=== PATIENT | female | born 1985 | race Caucasian/White ===

== ENCOUNTER → 2018-04-25 09:25 | Outpatient (CLI) | payer OTHER, SELFPAY ==
--- NOTE | 2018-04-25 09:27 | NM_ITS ---
NM hepatobiliary w pharm HISTORY: ITS.REASON: RUQ PAIN ORDERING PHYSICIAN: Temi Fontenot PATIENT AGE: 32 years COMPARISON: None DOSE: 8.57 mci TC choletec Fatty Meal: Ensure FINDINGS: Homogeneous activity is present within the hepatic parenchyma. What was felt to represent the gallbladder was not visualized until 45 minutes. At that point, there was a moderate amount of activity present within the small bowel. Only a small amount of activity is noted in the gallbladder. Ejection fraction was performed following ingestion of fatty meal and was 25%. Patient reported pain with fatty meal. Small bowel activity was present at 20 minutes. IMPRESSION: 1. Delayed visualization of gallbladder which may be seen with chronic inflammatory changes of the cystic duct. 2. Low gallbladder ejection fraction with pain reported with fatty meal. These findings may be seen with gallbladder dyskinesia. Please correlate with clinical parameters
== END ==
PROVIDERS: Family Provider Family Medicine; PCP Nurse Practitioner Family; Visit Provider Nurse Practitioner Family
DX: R10.11 Right upper quadrant pain (principal)
CPT/HCPCS: 78227; A9537

== ENCOUNTER → 2019-03-30 12:13 | Outpatient (CLI) | payer OTHER, SELFPAY ==
[2019-03-30 13:02] LABS: Alanine Aminotransferase 38 U/L (12-78); Albumin Level 3.2 gm/dL (3.4-5.0); Alkaline Phosphatase 75 U/L (46-116); Amylase 29 U/L (25-115); Aspartate Amino Transferase 17 U/L (15-37); Bilirubin,Direct 0.1 mg/dL (0.0-0.2); Bilirubin,Indirect 0.2 mg/dL (0.0-0.9); Bilirubin,Total 0.3 mg/dL (0.2-1.0); Total Protein,Serum 6.3 gm/dL (6.4-8.2)
[2019-04-02 02:33] LABS: ALT (SGPT) P5P 30 IU/L (0-40); Alpha 2-Macroglobulins, Qn 241 mg/dL (110-276); Apolipoprotein A-1 103 mg/dL (116-209); Bilirubin, Total 0.2 mg/dL (0.0-1.2); Fibrosis Score 0.12 (0.00-0.21); GGT 32 IU/L (0-60); Haptoglobin 172 mg/dL (34-200); Necroinflammat Activity Grade A0-No activity (.); Necroinflammat Activity Score 0.11 (0.00-0.17)
== END ==
LOC: LAB 12:14
PROVIDERS: PCP Family Medicine; Visit Provider Internal Medicine Gastroenterology
DX: R10.11 Right upper quadrant pain (principal); K76.0 Fatty (change of) liver, not elsewhere classified; K74.69 Other cirrhosis of liver
CPT/HCPCS: 36415; 80076; 81596; 82150

== ENCOUNTER 2019-04-14 10:22 | Inpatient (IN) ==
[2019-04-14 11:16] LABS: Basophils % 0.1 % (0.1-2.0); Hematocrit 45.6 % (37.0-47.0); Hemoglobin 13.6 g/dL (12.2-16.2); Lymphocytes # 1.6 K/mm3 (0.7-4.5); Lymphocytes % 9.7 % (10-50); Mean Corpuscular HGB Conc 29.8 g/dL (31.8-35.4); Mean Corpuscular Volume 72.2 fl (81-99); Mean Platelet Volume 8.6 fl (7.4-10.4); Monocytes # 0.6 K/mm3 (0.1-1.0); Monocytes % 3.6 % (1.7-9.3); Neutrophils # 13.9 K/mm3 (1.8-7.8); Neutrophils % 86.5 % (37.0-80.0); Platelet Count 343 K/mm3 (142-424); Red Blood Count 6.32 M/mm3 (4.20-5.40); Red Cell Distribution Width 17.9 % (11.5-17.5); White Blood Count 16.1 K/mm3 (4.8-10.8)
[2019-04-14 13:16] LABS: Albumin Level 3.8 gm/dL (3.4-5.0); Bilirubin,Direct 0.2 mg/dL (0.0-0.2); Bilirubin,Indirect 0.6 mg/dL (0.0-0.9); Bilirubin,Total 0.8 mg/dL (0.2-1.0); Total Protein,Serum 7.2 gm/dL (6.4-8.2)
[2019-04-14 13:27] LABS: Lymphocytes % 9 % (10-50); Monocytes % 3 % (2-9); Neutrophils % 87 % (42-76); Total Cells Counted 100
--- NOTE | 2019-04-14 15:54 | History & Physical Report ---
*Admission Date: 04/14/19 *Chief complaint: Abdominal pain *History of present illness: 33-year-old female presented to the office today with epigastric abdominal pain nausea and vomiting that began in the middle and night. Patient underwent ERCP yesterday with biliary sphincterotomy. At discharge from the hospital she was feeling well but around midnight symptoms appeared and progressed. She was seen in the office earlier today with epigastric tenderness concerning for acute pancreatitis. Labs supported diagnosis of acute pancreatitis with elevated amylase and lipase and patient is being admitted for IV fluids, pain control and antiemetics. She has a history of cirrhosis of the liver but no prior history of pancreatitis [facility] History I have reviewed the patient's past medical history: Yes Medical History: Reports:: Diabetes Mellitus Type 2, Hypertension Denies:: Cancer, Diabetes Mellitus Type 1, Internal Pacemaker, Lung Disease, MRSA, Seizures *Have you ever received a pneumonia vaccine?: No *Have you received a flu vaccine this season?: No Other Medical History: Reports: Blood Transfusion Reaction Laterality Cases: Bilateral: Tonsillectomy Other Surgeries: Yes: Cholecystectomy. No: Pacemaker Amputation: No Fractures: No - *Social History Smoking Status: Never smoker Alcohol Intake: never Alcohol Intake Frequency:: holidays/special occasions only *Occupational Status:: employed Housing: house Household Members: family *Travel in the last 8 weeks: None Family Hx:: Unable to obtain Review of Systems - Review of Systems Review of systems:: pertinent systems reviewed and negative unless documented below - Constitutional Denies body ache(s), Denies chills, Denies fever(s) - *Cardiovascular Denies chest pain - *Respiratory Denies change in phlegm color, Denies chest congestion - *Gastrointestinal Reports abdominal pain, Reports bloating Meds Home Medications Medication Instructions Recorded Confirmed Type Levothyroxine Sodium 50 mcg PO DAILY 04/08/18 04/13/19 History [Levothyroxine 50mcg (0.05mg) Tab] Metoprolol Tartrate [Lopressor 25 mg PO DAILY 04/08/18 04/13/19 History 25mg tablet] Omeprazole [Omeprazole 20mg 20 mg PO DAILY 04/08/18 04/13/19 History Capsule] Ondansetron [Zofran 4mg ODT] 4 mg PO TIDP PRN #10 tab.rapdis 04/08/18 04/13/19 Rx Carvedilol [Carvedilol 6.25mg Tab] 6.25 mg PO BID 04/07/19 04/13/19 History Empagliflozin [Jardiance] 25 mg PO DAILY 04/07/19 04/13/19 History Lisinopril [Lisinopril 10mg Tab] 10 mg PO DAILY 04/07/19 04/13/19 History Pioglitazone HCl 15 mg PO DAILY 04/07/19 04/13/19 History Allergies Allergy/AdvReac Type Severity Reaction Status Date / Time No Known Allergies Allergy Verified 04/13/19 13:21 Exam Vital signs and Labs for Last 24 Hours: Laboratory Results - last 24 hr 04/14/19 10:24: WBC 16.1 H, RBC 6.32 H, Hgb 13.6, Hct 45.6, MCV 72.2 L, MCH 21.5 L, MCHC 29.8 L, RDW 17.9 H, Plt Count 343, MPV 8.6, Neut % (Auto) 86.5 H, Lymph % (Auto) 9.7 L, [place] % (Auto) 3.6, Eos % (Auto) 0.0 L, Baso % (Auto) 0.1, Neut # (Auto) 13.9 H, Lymph # (Auto) 1.6, [place] # (Auto) 0.6, Eos # (Auto) 0.0, Baso # (Auto) 0.0, Total Counted 100, Neutrophils % (Manual) 87 H, Band Neutrophils % 1.0, Lymphocytes % (Manual) 9 L, Monocytes % (Manual) 3, Platelet Estimate Normal 04/14/19 10:24: Total Bilirubin 0.8, Direct Bilirubin 0.2, Indirect Bilirubin 0.6, AST 36, ALT 60, Alkaline Phosphatase 94, Total Protein 7.2, Albumin 3.8, Amylase 1912 H*, Lipase 66676 H Narrative: Patient appears ill with facial plethora. ENT exam is normal. Lungs are clear to auscultation. Heart has a regular rate and rhythm. Abdomen is soft and obese with epigastric tenderness to palpation without rebound or guarding. Bowel sounds are hypoactive. Patient moves all extremities and there is no pedal edema Assessment and Plan (1) Acute pancreatitis Current visit: Yes Status: Acute Category: Medical Code(s): K85.90 - Acute pancreatitis without necrosis or infection, unspecified (2) Cirrhosis of transplanted liver Current visit: Yes Status: Acute Category: Medical Code(s): T86.49 - Other complications of liver transplant; K74.60 - Unspecified cirrhosis of liver (3) Diabetes mellitus Current visit: Yes Status: Acute Category: Medical Code(s): E11.9 - Type 2 diabetes mellitus without complications - Assessment and plan all Dx Assessment and Plan for all problems:: Patient will be made n.p.o. IV fluids will be administered at a rate of 200 mL's an hour of normal saline. She has been ordered morphine for pain. Zofran and Phenergan have been ordered as antiemetics. Labs will be repeated in a.m.
[2019-04-15 06:39] LABS: Basophils % 0.2 % (0.1-2.0); Eosinophils % 0.2 % (0.1-12.0); Hematocrit 40.5 % (37.0-47.0); Lymphocytes # 2.3 K/mm3 (0.7-4.5); Lymphocytes % 14.3 % (10-50); Mean Corpuscular HGB Conc 30.2 g/dL (31.8-35.4); Mean Platelet Volume 7.3 fl (7.4-10.4); Monocytes # 1.1 K/mm3 (0.1-1.0); Monocytes % 6.8 % (1.7-9.3); Neutrophils # 12.8 K/mm3 (1.8-7.8); Neutrophils % 78.4 % (37.0-80.0); Platelet Count 268 K/mm3 (142-424); Red Blood Count 5.62 M/mm3 (4.20-5.40); Red Cell Distribution Width 18.5 % (11.5-17.5); White Blood Count 16.3 K/mm3 (4.8-10.8)
[2019-04-15 06:49] LABS: Albumin/Globulin Ratio 0.9 (1.1-1.8); Anion Gap 12.3 mEq/L (5-15); Calcium 8.2 mg/dL (8.5-10.1); Globulin 3.3 gm/dl (1.3-3.2); Total Protein,Serum 6.3 gm/dL (6.4-8.2)
[2019-04-15 07:22] LABS: Hemoglobin 12.1 g/dL (12.2-16.2)
--- NOTE | 2019-04-15 07:34 | Pharmacy Consult Notes ---
[facility] Pharmacy VTE Monitoring - Patient Demographics Admission date: 04/14/19 Report Date: 04/15/19 Time: 07:33 Allergies/Adverse Reactions: Patient Allergies No Known Allergies Allergy (Verified 04/13/19 13:21) Height: 1.7 m Weight: 132.506 kg Patient Problems: Current Active Problems Acute pancreatitis (Acute) Cirrhosis of transplanted liver (Acute) Diabetes mellitus (Acute) - VTE Risk Labs: VTE Related Lab Results Hgb 12.1 g/dL (12.2-16.2) L D 04/15/19 05:44 Hct 40.5 % (37.0-47.0) 04/15/19 05:44 Plt Count 268 K/mm3 (142-424) 04/15/19 05:44 BUN 9 mg/dL (7-18) 04/15/19 05:44 Creatinine 0.64 mg/dL (0.55-1.02) 04/15/19 05:44 Estimated Creat Clear 124 mL/min (50-200) 04/15/19 05:44 Was VTE Risk Assessment Performed: Yes VTE Score: 5 VTE Risk Level: Low Risk Clinical Trial Participant: No - Prophylaxis VTE Prophylaxis Ordered?: Yes Types of VTE Prophylaxis: TEDS Knee High
[2019-04-15 07:52] LABS: Lymphocytes % 11 % (10-50); Monocytes % 9 % (2-9); Neutrophils % 77 % (42-76); Total Cells Counted 100
--- NOTE | 2019-04-15 07:58 | Progress Note ---
Internal Medicine - PN: Subj *Date: 04/15/19 *Time: 07:56 Interval history: Patient admits to some improvement in abdominal pain this morning although admits it is minor. She still endorses nausea and epigastric abdominal pain. She denies bowel movement or flatus. Exam Vital signs and Labs for Last 24 Hours: Temp Pulse Resp BP Pulse Ox 99.6 F 101 H 18 161/72 H 100 04/15/19 03:55 04/15/19 03:55 04/15/19 03:55 04/15/19 03:55 04/15/19 03:55 Laboratory Results - last 24 hr 04/14/19 10:24: WBC 16.1 H, RBC 6.32 H, Hgb 13.6, Hct 45.6, MCV 72.2 L, MCH 21.5 L, MCHC 29.8 L, RDW 17.9 H, Plt Count 343, MPV 8.6, Neut % (Auto) 86.5 H, Lymph % (Auto) 9.7 L, [place] % (Auto) 3.6, Eos % (Auto) 0.0 L, Baso % (Auto) 0.1, Neut # (Auto) 13.9 H, Lymph # (Auto) 1.6, [place] # (Auto) 0.6, Eos # (Auto) 0.0, Baso # (Auto) 0.0, Total Counted 100, Neutrophils % (Manual) 87 H, Band Neutrophils % 1.0, Lymphocytes % (Manual) 9 L, Monocytes % (Manual) 3, Platelet Estimate Normal 04/14/19 10:24: Total Bilirubin 0.8, Direct Bilirubin 0.2, Indirect Bilirubin 0.6, AST 36, ALT 60, Alkaline Phosphatase 94, Total Protein 7.2, Albumin 3.8, Amylase 1912 H*, Lipase 57251 H 04/14/19 16:35: POC Glucose 110 04/14/19 20:18: POC Glucose 110 04/15/19 05:44: Sodium 143, Potassium 3.3 L, Chloride 108 H, Carbon Dioxide 26, Anion Gap 12.3, BUN 9, Creatinine 0.64, Estimated Creat Clear 124, Estimated GFR 108, Est GFR ( Amer) 131, Glucose 99, Calcium 8.2 L, Total Bilirubin 1.0, AST 14 L D, ALT 33 D, Alkaline Phosphatase 73, Total Protein 6.3 L, Albumin 3.0 L D, Globulin 3.3 H, Albumin/Globulin Ratio 0.9 L 04/15/19 05:44: WBC 16.3 H, RBC 5.62 H, Hgb 12.1 L D, Hct 40.5, MCV 72.0 L, MCH 21.8 L, MCHC 30.2 L, RDW 18.5 H, Plt Count 268, MPV 7.3 L, Neut % (Auto) 78.4, Lymph % (Auto) 14.3, [place] % (Auto) 6.8, Eos % (Auto) 0.2, Baso % (Auto) 0.2, Neut # (Auto) 12.8 H, Lymph # (Auto) 2.3, [place] # (Auto) 1.1 H, Eos # (Auto) 0.0, Baso # (Auto) 0.0, Total Counted 100, Neutrophils % (Manual) 77 H, Band Neutrophils % 1.0, Lymphocytes % (Manual) 11, Atypical Lymphs % 2.0, Monocytes % (Manual) 9, Platelet Estimate Normal, RBC Morphology Not Reportable 04/15/19 06:18: POC Glucose 105 I & O for Last 24 hours: Intake & Output 04/12/19 04/13/19 04/14/19 04/15/19 11:59 11:59 11:59 11:59 Intake Total 2569 / 2569 Output Total 200 / 200 Balance 2369 / 2369 Weight 292 lb 2 oz Narrative: Patient looks more comfortable. Lungs are clear. Heart has a regular rate and rhythm. Abdomen is soft with epigastric tenderness. Bowel sounds are hypoactive. Assessment and Plan (1) Acute pancreatitis Current visit: Yes Status: Acute Category: Medical Code(s): K85.90 - Acute pancreatitis without necrosis or infection, unspecified (2) Cirrhosis of transplanted liver Current visit: Yes Status: Acute Category: Medical Code(s): T86.49 - Other complications of liver transplant; K74.60 - Unspecified cirrhosis of liver (3) Diabetes mellitus Current visit: Yes Status: Acute Category: Medical Code(s): E11.9 - Type 2 diabetes mellitus without complications - Assessment and plan all Dx Assessment and Plan for all problems:: Continue IV fluids and n.p.o. status. May advance diet to ice chips this evening. Continue morphine for pain. Encourage patient to ambulate
[2019-04-16 06:12] LABS: Basophils % 0.3 % (0.1-2.0); Eosinophils # 0.2 K/mm3 (0.0-0.4); Eosinophils % 0.9 % (0.1-12.0); Hematocrit 37.3 % (37.0-47.0); Lymphocytes # 2.4 K/mm3 (0.7-4.5); Lymphocytes % 14.1 % (10-50); Mean Corpuscular HGB Conc 29.5 g/dL (31.8-35.4); Mean Corpuscular Volume 74.4 fl (81-99); Mean Platelet Volume 8.7 fl (7.4-10.4); Monocytes # 1.2 K/mm3 (0.1-1.0); Monocytes % 6.9 % (1.7-9.3); Neutrophils # 13.5 K/mm3 (1.8-7.8); Neutrophils % 77.8 % (37.0-80.0); Platelet Count 249 K/mm3 (142-424); Red Blood Count 5.02 M/mm3 (4.20-5.40); Red Cell Distribution Width 18.2 % (11.5-17.5); White Blood Count 17.3 K/mm3 (4.8-10.8)
[2019-04-16 06:43] LABS: Albumin Level 2.6 gm/dL (3.4-5.0); Albumin/Globulin Ratio 0.7 (1.1-1.8); Anion Gap 16.7 mEq/L (5-15); Bilirubin,Total 1.9 mg/dL (0.2-1.0); Calcium 8.3 mg/dL (8.5-10.1); Globulin 3.6 gm/dl (1.3-3.2); Total Protein,Serum 6.2 gm/dL (6.4-8.2)
[2019-04-16 07:07] LABS: Hypochromasia 1+; Lymphocytes % 13 % (10-50); Monocytes % 6 % (2-9); Neutrophils % 76 % (42-76); Total Cells Counted 100
--- NOTE | 2019-04-16 07:37 | Progress Note ---
Internal Medicine - PN: Subj *Date: 04/16/19 *Time: 07:35 Interval history: Patient states she is feeling slightly better this morning. She is tolerated sips and chips. She had a fever to 101.9 yesterday evening. Blood cultures were drawn and patient was started on IV Invanz. She is still has not had a bowel movement but does admit to flatus. Exam Vital signs and Labs for Last 24 Hours: Temp Pulse Resp BP Pulse Ox 99.9 F H 97 H 30 H 162/94 H 94 L 04/16/19 04:00 04/16/19 04:00 04/16/19 04:00 04/16/19 04:00 04/16/19 04:00 Laboratory Results - last 24 hr 04/15/19 05:44: Total Counted 100, Neutrophils % (Manual) 77 H, Band Neutrophils % 1.0, Lymphocytes % (Manual) 11, Atypical Lymphs % 2.0, Monocytes % (Manual) 9, Platelet Estimate Normal, RBC Morphology Not Reportable 04/15/19 11:37: POC Glucose 93 04/15/19 16:15: POC Glucose 83 04/15/19 20:11: POC Glucose 73 04/16/19 05:48: WBC 17.3 H, RBC 5.02, Hgb 11.0 L, Hct 37.3, MCV 74.4 L, MCH 21.9 L, MCHC 29.5 L, RDW 18.2 H, Plt Count 249, MPV 8.7, Neut % (Auto) 77.8, Lymph % (Auto) 14.1, [place] % (Auto) 6.9, Eos % (Auto) 0.9, Baso % (Auto) 0.3, Neut # (Auto) 13.5 H, Lymph # (Auto) 2.4, [place] # (Auto) 1.2 H, Eos # (Auto) 0.2, Baso # (Auto) 0.0, Total Counted 100, Neutrophils % (Manual) 76, Band Neutrophils % 5.0, Lymphocytes % (Manual) 13, Monocytes % (Manual) 6, Platelet Estimate Normal, Hypochromasia 1+, Microcytosis 1+ 04/16/19 05:48: Sodium 141, Potassium 3.7, Chloride 107, Carbon Dioxide 21, Anion Gap 16.7 H, BUN 7, Creatinine 0.56, Estimated Creat Clear 136, Estimated GFR 126, Est GFR ( Amer) 153, Glucose 77, Calcium 8.3 L, Total Bilirubin 1.9 H, AST 13 L, ALT 22 D, Alkaline Phosphatase 69, Total Protein 6.2 L, Albumin 2.6 L D, Globulin 3.6 H, Albumin/Globulin Ratio 0.7 L 04/16/19 06:05: POC Glucose 78 I & O for Last 24 hours: Intake & Output 04/13/19 04/14/19 04/15/19 04/16/19 11:59 11:59 11:59 11:59 Intake Total 2769 / 2769 1930 / 1930 Output Total 200 / 200 300 / 300 Balance 2569 / 2569 1630 / 1630 Weight 292 lb 2 oz 296 lb 4 oz Narrative: Patient is in no distress. Lungs are clear. Heart has a regular rate and rhythm. Abdomen is soft with epigastric and left upper quadrant tenderness to palpation with increased swelling in the left upper quadrant. Bowel sounds are present Assessment and Plan (1) Acute pancreatitis Current visit: Yes Status: Acute Category: Medical Code(s): K85.90 - Acute pancreatitis without necrosis or infection, unspecified (2) Cirrhosis of transplanted liver Current visit: No Status: Acute Category: Medical Code(s): T86.49 - Other complications of liver transplant; K74.60 - Unspecified cirrhosis of liver (3) Diabetes mellitus Current visit: Yes Status: Acute Category: Medical Code(s): E11.9 - Type 2 diabetes mellitus without complications - Assessment and plan all Dx Assessment and Plan for all problems:: 1. Clinically patient would seem to be improving. CT scan abdomen and pelvis with IV and oral contrast will be performed today. Continue IV Invanz and await blood cultures
[2019-04-17 06:38] LABS: Basophils % 0.2 % (0.1-2.0); Eosinophils # 0.2 K/mm3 (0.0-0.4); Eosinophils % 1.5 % (0.1-12.0); Hematocrit 35.2 % (37.0-47.0); Hemoglobin 10.7 g/dL (12.2-16.2); Lymphocytes # 2.1 K/mm3 (0.7-4.5); Mean Corpuscular HGB Conc 30.5 g/dL (31.8-35.4); Mean Corpuscular Volume 74.1 fl (81-99); Mean Platelet Volume 8.6 fl (7.4-10.4); Monocytes # 1.3 K/mm3 (0.1-1.0); Monocytes % 7.9 % (1.7-9.3); Neutrophils # 12.4 K/mm3 (1.8-7.8); Neutrophils % 77.4 % (37.0-80.0); Platelet Count 257 K/mm3 (142-424); Red Blood Count 4.75 M/mm3 (4.20-5.40); Red Cell Distribution Width 17.9 % (11.5-17.5); White Blood Count 16.1 K/mm3 (4.8-10.8)
--- NOTE | 2019-04-17 07:20 | Progress Note ---
Internal Medicine - PN: Subj *Date: 04/17/19 *Time: 07:19 Interval history: Patient has no new complaints this morning. With clear liquids she had some diarrhea but denies nausea or increase in abdominal pain Exam Vital signs and Labs for Last 24 Hours: Temp Pulse Resp BP Pulse Ox 99.8 F H 84 28 H 135/51 L 94 L 04/17/19 04:00 04/17/19 04:00 04/17/19 04:00 04/17/19 04:00 04/17/19 04:00 Laboratory Results - last 24 hr 04/16/19 11:16: POC Glucose 100 04/16/19 16:03: POC Glucose 105 04/16/19 22:32: POC Glucose 105 04/17/19 05:49: WBC 16.1 H, RBC 4.75, Hgb 10.7 L, Hct 35.2 L, MCV 74.1 L, MCH 22.6 L, MCHC 30.5 L, RDW 17.9 H, Plt Count 257, MPV 8.6, Neut % (Auto) 77.4, Lymph % (Auto) 13.0, [place] % (Auto) 7.9, Eos % (Auto) 1.5, Baso % (Auto) 0.2, Neut # (Auto) 12.4 H, Lymph # (Auto) 2.1, [place] # (Auto) 1.3 H, Eos # (Auto) 0.2, Baso # (Auto) 0.0 04/17/19 06:07: POC Glucose 134 H I & O for Last 24 hours: Intake & Output 04/14/19 04/15/19 04/16/19 04/17/19 11:59 11:59 11:59 11:59 Intake Total 2769 / 2769 1930 / 1930 3815 / 3815 Output Total 200 / 200 300 / 300 Balance 2569 / 2569 1630 / 1630 3815 / 3815 Weight 292 lb 2 oz 296 lb 4 oz 298 lb 1 oz Narrative: Patient is awake and alert. Abdomen is soft with no significant tenderness. There is some fullness in the left upper quadrant consistent with peripancreatic edema seen on CT scan Assessment and Plan (1) Acute pancreatitis Current visit: Yes Status: Acute Category: Medical Code(s): K85.90 - Acute pancreatitis without necrosis or infection, unspecified (2) Cirrhosis of transplanted liver Current visit: No Status: Acute Category: Medical Code(s): T86.49 - Other complications of liver transplant; K74.60 - Unspecified cirrhosis of liver (3) Diabetes mellitus Current visit: Yes Status: Acute Category: Medical Code(s): E11.9 - Type 2 diabetes mellitus without complications - Assessment and plan all Dx Assessment and Plan for all problems:: Patient is improving. Advance to full liquid diet and if she tolerates that will be candidate for discharge
[2019-04-17 07:23] LABS: Albumin Level 2.3 gm/dL (3.4-5.0); Albumin/Globulin Ratio 0.6 (1.1-1.8); Anion Gap 11.5 mEq/L (5-15); Bilirubin,Total 1.4 mg/dL (0.2-1.0); Calcium 8.2 mg/dL (8.5-10.1); Globulin 3.6 gm/dl (1.3-3.2); Total Protein,Serum 5.9 gm/dL (6.4-8.2)
[2019-04-17 09:01] LABS: Eosinophils % 1 % (0-3); Lymphocytes % 17 % (10-50); Monocytes % 2 % (2-9); Neutrophils % 79 % (42-76); Total Cells Counted 100
[2019-04-17 09:02] LABS: Hypochromasia 2+
--- NOTE | 2019-04-18 07:53 | Discharge Summary ---
General - General Admission date:: 04/14/19 Discharge date: 04/18/19 HPI HPI: 33-year-old female presented to the office today with epigastric abdominal pain nausea and vomiting that began in the middle and night. Patient underwent ERCP yesterday with biliary sphincterotomy. At discharge from the hospital she was feeling well but around midnight symptoms appeared and progressed. She was seen in the office earlier today with epigastric tenderness concerning for acute pancreatitis. Labs supported diagnosis of acute pancreatitis with elevated amylase and lipase and patient is being admitted for IV fluids, pain control and antiemetics. She has a history of cirrhosis of the liver but no prior history of pancreatitis Hospital Course Hospital Course: Made n.p.o. and started on normal saline at 200 mL's per hour with morphine ordered for pain. Patient slowly progressed with decrease in pain and nausea and vomiting. By the evening of April 15 patient was allowed ice chips. She tolerated ice chips and diet was advanced in a stepwise fashion until she was tolerating a full liquid diet. As her admission progressed her use of intravenous morphine for pain decreased. Once patient's pain had decreased she was encouraged to ambulate more. Patient has diabetes and diabetic medications were withheld during the early part of admission. Patient bordered on hypoglycemic at times and after 48 hours fluids were changed to D5 half-normal saline with 20 mEq of potassium. This corrected patient's hypokalemia as well as her borderline hypoglycemia. Patient had elevated white blood cell count on admission which was considered due to her pancreatitis. However the day following admission patient developed a fever of 101.9. Blood cultures were drawn and patient was started on Invanz. White count remained elevated despite broad-spectrum antibiotic coverage. Patient would have intermittent fevers that would respond to Tylenol. On April 17 1 of her blood cultures was beginning to show a gram-positive bacilli but her other blood cultures were negative. The gram-positive bacilli was felt to be a contaminant. On April 18 patient was discharged home. She will follow-up in my office on April 20 at 11 AM. She will be given a limited supply of pain medication. She will continue full liquid diet and will slowly advance to a low-fat diet Objective Vital signs: Temp Pulse Resp BP Pulse Ox 97.5 F L 68 20 125/63 95 04/18/19 04:00 04/18/19 04:00 04/18/19 04:00 04/18/19 04:00 04/18/19 04:00 no acute distress - *Routine Respiratory Exam Present: CTA bilaterally - *Routine Cardiovascular Exam Present: RRR, Normal S1, Normal S2 - *Routine Abdominal Exam Present: soft, tenderness (Minimal epigastric), distended Results Labs on day of discharge: Labs from last 24 hours 04/18/19 04/17/19 04/17/19 06:29 20:32 16:25 Total Counted Neutrophils % (Manual) Lymphocytes % (Manual) Monocytes % (Manual) Eosinophils % (Manual) Basophils % (Manual) Platelet Estimate Hypochromasia POC Glucose 117 H 112 H 122 H 04/17/19 04/17/19 11:05 05:49 Total Counted 100 Neutrophils % (Manual) 79 H Lymphocytes % (Manual) 17 Monocytes % (Manual) 2 Eosinophils % (Manual) 1 Basophils % (Manual) 1.0 Platelet Estimate Normal Hypochromasia 2+ POC Glucose 143 H Preliminary micro results at discharge 04/15/19 16:25 Blood Culture - Preliminary Blood 04/15/19 16:25 Blood Culture - Preliminary Blood NO GROWTH AFTER 48 HOURS DS: Diagnosis - Discharge Diagnosis (1) Acute pancreatitis Status: Acute (2) Diabetes mellitus Status: Acute (3) Cirrhosis Status: Acute Discharge Plan - Patient Discharge Instructions ACTIVITY: Continue current activity DIET: continue same diet Patient Instructions: Acute Pancreatitis, DI for Pancreatitis, DI for Cirrhosis, DI for Diabetes Type 2, DI for Hypoglycemia - Follow up Plan Follow up with: Mike Painter MD [Staff Physician] - 04/20/19 11:00 am Disposition: Home, Self-Senior Care Medications: Home Medications Medication Instructions Recorded Confirmed Type Levothyroxine Sodium 50 mcg PO DAILY 04/08/18 04/14/19 History [Levothyroxine 50mcg (0.05mg) Tab] Omeprazole [Omeprazole 20mg 20 mg PO DAILY 04/08/18 04/14/19 History Capsule] Carvedilol [Carvedilol 6.25mg Tab] 6.25 mg PO BID 04/07/19 04/14/19 History Empagliflozin [Jardiance] 25 mg PO DAILY 04/07/19 04/14/19 History Lisinopril [Lisinopril 10mg Tab] 10 mg PO DAILY 04/07/19 04/14/19 History Pioglitazone HCl 15 mg PO DAILY 04/07/19 04/14/19 History Ondansetron [Zofran 4mg ODT] 4 mg PO Q8HP PRN 04/14/19 04/15/19 History Hydrocodone/Acetaminophen [[place] 1 each PO Q6HP PRN #10 tab 04/18/19 Rx 5-325 Tablet] Prescriptions/Medication Reconciliation: New Hydrocodone/Acetaminophen [[place] 5-325 Tablet] 1 each PO Q6HP PRN #10 tab PRN Reason: Moderate To Severe Pain Continued Omeprazole [Omeprazole 20mg Capsule] 20 mg PO DAILY Carvedilol [Carvedilol 6.25mg Tab] 6.25 mg PO BID Pioglitazone HCl 15 mg PO DAILY Empagliflozin [Jardiance] 25 mg PO DAILY Levothyroxine Sodium [Levothyroxine 50mcg (0.05mg) Tab] 50 mcg PO DAILY Lisinopril [Lisinopril 10mg Tab] 10 mg PO DAILY Ondansetron [Zofran 4mg ODT] 4 mg PO Q8HP PRN PRN Reason: Nausea And Vomiting - Problem Reconciliation Problems Reviewed?: Yes
--- NOTE | 2019-04-18 08:55 | Progress Note ---
Internal Medicine - PN: Subj *Date: 04/18/19 *Time: 08:55 Exam Vital signs and Labs for Last 24 Hours: Temp Pulse Resp BP Pulse Ox 98.0 F 72 18 94/46 L 96 04/18/19 08:00 04/18/19 08:00 04/18/19 08:00 04/18/19 08:00 04/18/19 08:00 Laboratory Results - last 24 hr 04/17/19 05:49: Total Counted 100, Neutrophils % (Manual) 79 H, Lymphocytes % (Manual) 17, Monocytes % (Manual) 2, Eosinophils % (Manual) 1, Basophils % (Manual) 1.0, Platelet Estimate Normal, Hypochromasia 2+ 04/17/19 11:05: POC Glucose 143 H 04/17/19 16:25: POC Glucose 122 H 04/17/19 20:32: POC Glucose 112 H 04/18/19 06:29: POC Glucose 117 H I & O for Last 24 hours: Intake & Output 04/15/19 04/16/19 04/17/19 04/18/19 23:59 23:59 23:59 23:59 Intake Total 4459 / 4459 2690 / 2810 4811 / 4811 1003 / 1003 Output Total 200 / 200 300 / 300 Balance 4259 / 4259 2390 / 2510 4811 / 4811 1003 / 1003 Weight 132.506 kg 134.377 kg 135.199 kg 136.56 kg Microbiology Reports for the Last 24 Hours: Microbiology 04/15/19 16:25 Blood Blood Culture - Preliminary 04/15/19 16:25 Blood Blood Culture - Preliminary NO GROWTH AFTER 48 HOURS Assessment and Plan (1) Acute pancreatitis Current visit: Yes Status: Acute Category: Medical Code(s): K85.90 - Acute pancreatitis without necrosis or infection, unspecified (2) Diabetes mellitus Current visit: Yes Status: Acute Category: Medical Code(s): E11.9 - Type 2 diabetes mellitus without complications (3) Cirrhosis Current visit: Yes Status: Acute Category: Medical Code(s): K74.60 - Unspecified cirrhosis of liver The patient's infection will respond to the chosen ABx?: Yes Is the patient receiving the right drug, dose, and route?: Yes Could a more targeted ABx be ordered?: No (HOME ON NO ABX)
== END 2019-04-18 09:11 | disposition home or self-care (01) | DRG 440 ==
LOC: LAB 10:22 → 2ND 10:22 → OBSVTOIN 15:49
PROVIDERS: ADMIT Family Medicine; ATTEND Family Medicine
CPT/HCPCS: 36415; 74170; 80053; 80076; 82150; 82962; 83690; 85007; 85025; 87040; 87075; J1335; Q9967

== ENCOUNTER → 2019-05-04 13:05 | Outpatient (CLI) | payer OTHER, SELFPAY | PROVIDERS: PCP Family Medicine; Visit Provider Family Medicine | DX: R00.1 Bradycardia, unspecified (principal) | CPT/HCPCS: 93270 ==

== ENCOUNTER → 2019-09-07 09:43 | Outpatient (POV) | payer OTHER, SELFPAY ==
[2019-09-07 13:05] LABS: Basophils # 0.1 K/mm3 (0-0.2); Basophils % 0.5 % (0.1-2.0); Eosinophils # 0.3 K/mm3 (0.0-0.4); Eosinophils % 3.2 % (0.1-12.0); Hematocrit 41.9 % (37.0-47.0); Hemoglobin 12.8 g/dL (12.2-16.2); Lymphocytes # 2.7 K/mm3 (0.7-4.5); Lymphocytes % 27.4 % (10-50); Mean Corpuscular HGB Conc 30.6 g/dL (31.8-35.4); Mean Corpuscular Hemoglobin 23.9 pg (27.0-31.2); Mean Corpuscular Volume 78.2 fl (81-99); Mean Platelet Volume 8.9 fl (7.4-10.4); Monocytes # 0.5 K/mm3 (0.1-1.0); Neutrophils # 6.2 K/mm3 (1.8-7.8); Neutrophils % 63.9 % (37.0-80.0); Platelet Count 254 K/mm3 (142-424); Red Blood Count 5.36 M/mm3 (4.20-5.40); White Blood Count 9.7 K/mm3 (4.8-10.8)
[2019-09-07 15:35] LABS: Alanine Aminotransferase 46 U/L (12-78); Albumin Level 3.4 g/dL (3.4-5.0); Albumin/Globulin Ratio 1.1 (1.1-1.8); Alkaline Phosphatase 63 U/L (46-116); Amylase 34 U/L (25-115); Anion Gap 13.8 mEq/L (5-15); Aspartate Amino Transferase 23 U/L (15-37); Bilirubin,Total 0.3 mg/dL (0.2-1.0); Blood Urea Nitrogen 11 mg/dL (7-18); Carbon Dioxide 28 mmol/L (21.0-32.0); Chloride 109 mmol/L (98-107); Creatinine,Serum 0.59 mg/dL (0.55-1.02); Estimated Glomerular Filt Rate 119 ml/min (>60); GFR (African American) 144 ML/MIN (>60); Globulin 3.1 gm/dl (1.3-3.2); Glucose 128 mg/dL (74-106); Lipase 107 u/L (73-393); Potassium 4.8 mmoL/L (3.5-5.1); Sodium 146 mmol/L (137-145); Total Protein,Serum 6.5 g/dL (6.4-8.2)
== END ==
PROVIDERS: Visit Provider Nurse Practitioner Family
DX: R10.11 Right upper quadrant pain (principal); K58.9 Irritable bowel syndrome, unspecified; K76.0 Fatty (change of) liver, not elsewhere classified
CPT/HCPCS: 36415; 80053; 82150; 83690; 85025

== ENCOUNTER 2020-03-22 21:06 | Emergency (ER) | payer OTHER, SELFPAY ==
[2020-03-22 21:14] VITALS: BP 171/101; PULSE 70; RESP 18; TEMP 36.7; O2SAT 100; BMI 46.7
--- NOTE | 2020-03-22 21:27 | CT_ITS ---
PROCEDURE: CT ABDOMEN PELVIS W CON CLINICAL INDICATION: abdominal pain Sharp right-sided abdominal pain COMPARISON: CT CT ABDOMEN WO/W CON from 04/16/2019 TECHNIQUE: IV Contrast: 75ML OPTIRAY 350 Oral Contrast None Axial images obtained with sagittal and coronal reformats. All CT scans at the facility use one or more dose reduction, viz: automated exposure control, ma/kV adjustment per patient size (including targeted exams where dose is matched to indication, i.e. head), or iterative reconstruction technique. FINDINGS: LOWER THORAX: There are atelectatic changes in the lung bases. There is a oval area of consolidation in the left lower lobe posteriorly measuring 4.3 x 2 cm. This could be due to a rounded area atelectasis, pneumonia, or developing. Follow-up recommended. There is small left pleural effusion. ABDOMEN & PELVIS: Fatty liver with pneumobilia. Prior cholecystectomy. There is hepatomegaly. No focal liver lesion is demonstrated. The liver measures 29 cm transverse and 22 cm cephalad caudad. Spleen is enlarged at 17 cm. Pancreas, adrenal glands, and kidneys have an unremarkable appearance. No evidence of appendicitis or diverticulitis. No pelvic mass or abnormal fluid collection apparent. No intestinal obstruction or free. There is a 3.5 cm left ovarian cyst. Nabothian cysts tiny fat containing umbilical hernia. No acute bony anomaly. IMPRESSION: 1. Hepatosplenomegaly with hepatic steatosis and pneumobilia which could be related to prior biliary procedure but was not readily apparent on 04/16/2019. Correlation with clinical parameters needed. Cholangitis could also cause biliary gas. 2. Small left pleural effusion with masslike density in the left lower lobe medially which could be due to rounded atelectasis. Pneumonia or developing mass is an additional consideration and follow-up is suggested in 8-12 weeks. Small left effusion noted. Dictated by: Fermin Alcala MD 03/23/2020 06:08 Fermin Alcala MD in [place] 03/23/2020 06:08
[2020-03-22 21:37] LABS: Microscopic, Urine URINE MICROSCOPIC (MICROSCOPIC)
[2020-03-22 21:37] LABS: Basophils # 0.1 K/mm3 (0-0.2); Basophils % 0.7 % (0.1-2.0); Eosinophils # 0.3 K/mm3 (0.0-0.4); Eosinophils % 2.8 % (0.1-12.0); Hematocrit 45.9 % (37.0-47.0); Hemoglobin 14.5 g/dL (12.2-16.2); Lymphocytes # 3.4 K/mm3 (0.7-4.5); Lymphocytes % 30.4 % (10-50); Mean Corpuscular HGB Conc 31.5 g/dL (31.8-35.4); Mean Corpuscular Volume 79.3 fl (81-99); Mean Platelet Volume 9.1 fl (7.4-10.4); Monocytes # 0.5 K/mm3 (0.1-1.0); Monocytes % 4.7 % (1.7-9.3); Neutrophils # 6.8 K/mm3 (1.8-7.8); Neutrophils % 61.4 % (37.0-80.0); Platelet Count 263 K/mm3 (142-424); Red Blood Count 5.79 M/mm3 (4.20-5.40); Red Cell Distribution Width 14.8 % (11.5-17.5); White Blood Count 11.1 K/mm3 (4.8-10.8)
[2020-03-22 21:41] VITALS: BP 137/75; PULSE 75; RESP 16; O2SAT 96
[2020-03-22 21:46] LABS: Chloride 103 mmol/L (98-107); Sodium 143 mmol/L (136-145)
[2020-03-22 21:47] LABS: Potassium 4.1 mmoL/L (3.5-5.1)
[2020-03-22 21:49] LABS: Alanine Aminotransferase 62 U/L (12-78); Alkaline Phosphatase 71 U/L (38-126); Amylase 58 U/L (30-110); Anion Gap 15.1 mEq/L (5-15); Aspartate Amino Transferase 54 U/L (14-36); Bilirubin,Total 0.4 mg/dl (0.2-1.3); Blood Urea Nitrogen 12 mg/dl (7-17); Carbon Dioxide 29 mmol/L (22.0-30.0); Creatinine Clearance Estimated 108 mL/min (50-200); Estimated Glomerular Filt Rate 97 ml/min (>60); GFR (African American) 117 ML/MIN (>60); Glucose 136 mg/dl (74-100)
[2020-03-22 21:50] LABS: Albumin Level 4.3 g/dl (3.5-5.0); Albumin/Globulin Ratio 1.3 (1.1-1.8); Globulin 3.2 g/dL (1.3-3.2); Lipase 82 U/L (23-300); Total Protein,Serum 7.5 g/dl (6.3-8.2)
[2020-03-22 21:55] LABS: C-Reactive Protein 15.7 mg/L (0-4)
[2020-03-22 21:55] LABS: Appearance,Urine CLEAR (Clear); Bilirubin,Urine Negative (Negative); Blood, Urine Negative (Negative); Color,Urine YELLOW (Yellow); Glucose,Urine (UA) 3+ (Negative); Ketones,Urine Negative (Negative); Leukocyte Esterase,Urine Negative (Negative); Nitrate,Urine Negative (Negative); PH,Urine 7.5 (5.0-8.5); Protein,Urine Negative (Negative); Urobilinogen,Urine 0.2 EU/dl (0.2)
[2020-03-22 22:03] LABS: Urine Pregnancy, HCG Qual. Negative (Negative)
[2020-03-22 22:09] LABS: Erythrocyte Sedimentation Rate 6 mm/hr (0-20)
[2020-03-22 22:29] VITALS: BP 141/79; PULSE 78; RESP 18; O2SAT 97
[2020-03-22 22:35] LABS: Bacteria,Urine 2+ /lpf; Fine Granular Casts,Urine Occasional #/lpf (0)
[2020-03-22 22:58] VITALS: BP 154/87; PULSE 68; RESP 18; O2SAT 99
[2020-03-22 23:34] VITALS: BP 126/72; PULSE 63; RESP 18; O2SAT 98
--- NOTE | 2020-03-22 23:38 | HMH.EDNVD ---
ED Disposition Clinical Impression: Abdominal pain Qualifiers: Abdominal location: right lower quadrant Qualified Code(s): R10.31 - Right lower quadrant pain Disposition: Home, Self-Care Condition on Discharge: Good Instructions: DI for Acute Abdomen Additional Instructions: fluids and call pcp and gi for follow up Referrals: Mike Painter MD [Primary Care Provider] - - Critical Care Critical Care Time: No Attestation: On 03/22/20, the high probability of a clinically significant, sudden or life threatening deterioration of the following system(s) required my full and direct attention, intervention and personal management. The time I documented below is in addition to time spent performing reported procedures but includes the following listed in this critical care notation. Medical Decision Making - Medical Records Medical records reviewed: Yes: I reviewed the patient's medical records. - Junior Inquiry Pt receiving controlled substance: No Vital Signs: 03/22/20 21:14 03/22/20 21:41 03/22/20 22:29 Temperature 98.1 F Temperature Source Oral Pulse Rate [Left] 70 75 78 Respiratory Rate 18 16 18 Blood Pressure [Right Arm] 171/101 H 137/75 141/79 H Blood Pressure Mean [Right Arm] 124 95 99 Blood Pressure Source [Right Arm] Automatic Cuff Blood Pressure Position [Right Arm] Sitting 02 Sat by Pulse Oximetry 100 96 97 Oxygen Delivery Method Room Air Room Air Room Air 03/22/20 22:58 03/22/20 23:34 Temperature Temperature Source Pulse Rate [Left] 68 63 Respiratory Rate 18 18 Blood Pressure [Right Arm] 154/87 H 126/72 Blood Pressure Mean [Right Arm] 109 90 Blood Pressure Source [Right Arm] Blood Pressure Position [Right Arm] 02 Sat by Pulse Oximetry 99 98 Oxygen Delivery Method Room Air - Lab Data Lab results reviewed: Yes: I reviewed the patient's lab results. Lab Results 03/22/20 21:29: WBC 11.1 H, RBC 5.79 H, Hgb 14.5, Hct 45.9, MCV 79.3 L, MCH 25.0 L, MCHC 31.5 L, RDW 14.8, Plt Count 263, MPV 9.1, Neut % (Auto) 61.4, Lymph % (Auto) 30.4, [place] % (Auto) 4.7, Eos % (Auto) 2.8, Baso % (Auto) 0.7, Neut # (Auto) 6.8, Lymph # (Auto) 3.4, [place] # (Auto) 0.5, Eos # (Auto) 0.3, Baso # (Auto) 0.1, ESR 6 03/22/20 21:29: Sodium 143, Potassium 4.1, Chloride 103, Carbon Dioxide 29, Anion Gap 15.1 H, BUN 12, Creatinine 0.70, Estimated Creat Clear 108, Estimated GFR 97, Est GFR ( Amer) 117, Glucose 136 H, Calcium 10.0, Total Bilirubin 0.4, AST 54 H, ALT 62, Alkaline Phosphatase 71, C-Reactive Protein 15.7 H, Total Protein 7.5, Albumin 4.3, Globulin 3.2, Albumin/Globulin Ratio 1.3, Amylase 58, Lipase 82 03/22/20 21:33: Urine HCG, Qual Negative 03/22/20 21:33: Urine Color Yellow, Urine Appearance Clear, Urine pH 7.5, Ur Specific [place] 1.010, Urine Protein Negative, Urine Glucose (UA) 3+, Urine Ketones Negative, Urine Blood Negative, Urine Nitrate Negative, Urine Bilirubin Negative, Urine Urobilinogen 0.2, Ur Leukocyte Esterase Negative, Urine WBC 5-10, Ur Squamous Epith Cells 10-20, Urine Bacteria 2+, Fine Granular Casts Occasional Result diagrams: 03/22/20 21:29 03/22/20 21:29 Orders (Tests/Meds): ED MEDICATIONS Generic Name Dose Route Start Last Admin Trade Name Freq PRN Reason Stop Dose Admin Sodium Chloride 1,000 mls @ 999 mls/hr 03/22/20 21:30 03/22/20 21:41 Sod Chlor 0.9% 1000ml Bag IV 03/22/20 22:30 999 mls/hr .Q1H1M PENNY Administration Discontinued Medications Generic Name Dose Route Start Last Admin Trade Name Freq PRN Reason Stop Dose Admin Ioversol 75 ml 03/22/20 22:19 03/22/20 22:20 Rad-Optiray 350 100ml Vial IV 03/22/20 22:20 75 ml ONCE ONE Administration Protocol Sodium Chloride 10 ml 03/22/20 22:19 03/22/20 22:20 Rad-Saline Flush 10ml Syringe IV 03/22/20 22:20 10 ml ONCE ONE Administration ORDERS Category Date Time Status CT abdomen pelvis w con Stat Cat Scan 03/22/20 21:27 Taken Urine Culture Stat Micro 02/27
[2020-03-23 00:08] VITALS: BP 132/89; PULSE 71; RESP 18; TEMP 37.1
== END 2020-03-23 00:11 | disposition home or self-care (01) ==
PROVIDERS: Emergency Provider Emergency Medicine; PCP Family Medicine
DX: R10.31 Right lower quadrant pain (principal); K76.0 Fatty (change of) liver, not elsewhere classified; E11.9 Type 2 diabetes mellitus without complications; I10 Essential (primary) hypertension; Z90.09 Acquired absence of other part of head and neck; Z90.49 Acquired absence of other specified parts of digestive tract; Z79.899 Other long term (current) drug therapy
CPT/HCPCS: 74177; 80053; 81001; 81025; 82150; 83690; 85025; 85651; 86140; 87086; 96365; 96375; 99284; Q9967

== ENCOUNTER → 2020-05-27 13:39 | Outpatient (CLI) | payer OTHER, SELFPAY ==
[2020-05-27 14:11] LABS: Basophils # 0.1 K/mm3 (0-0.2); Basophils % 0.7 % (0.1-2.0); Eosinophils # 0.3 K/mm3 (0.0-0.4); Eosinophils % 4.1 % (0.1-12.0); Hematocrit 44.3 % (37.0-47.0); Hemoglobin 13.1 g/dL (12.2-16.2); Lymphocytes # 2.4 K/mm3 (0.7-4.5); Lymphocytes % 30.1 % (10-50); Mean Corpuscular HGB Conc 29.6 g/dL (31.8-35.4); Mean Platelet Volume 8.7 fl (7.4-10.4); Monocytes # 0.4 K/mm3 (0.1-1.0); Monocytes % 4.8 % (1.7-9.3); Neutrophils # 4.8 K/mm3 (1.8-7.8); Neutrophils % 60.4 % (37.0-80.0); Platelet Count 211 K/mm3 (142-424); Red Blood Count 5.47 M/mm3 (4.20-5.40); Red Cell Distribution Width 15.7 % (11.5-17.5); White Blood Count 7.9 K/mm3 (4.8-10.8)
[2020-05-27 15:26] LABS: Alanine Aminotransferase 58 U/L (12-78); Albumin Level 3.9 g/dl (3.5-5.0); Albumin/Globulin Ratio 1.4 (1.1-1.8); Alkaline Phosphatase 74 U/L (38-126); Anion Gap 11.6 mEq/L (5-15); Aspartate Amino Transferase 60 U/L (14-36); Bilirubin,Total 0.6 mg/dl (0.2-1.3); Blood Urea Nitrogen 12 mg/dl (7-17); Calcium 9.8 mg/dl (8.4-10.2); Carbon Dioxide 29 mmol/L (22.0-30.0); Chloride 104 mmol/L (98-107); Estimated Glomerular Filt Rate 116 ml/min (>60); GFR (African American) 140 ML/MIN (>60); Globulin 2.7 g/dL (1.3-3.2); Glucose 161 mg/dl (74-100); Potassium 4.6 mmoL/L (3.5-5.1); Sodium 140 mmol/L (136-145); Total Protein,Serum 6.6 g/dl (6.3-8.2)
== END ==
LOC: LAB 13:39
PROVIDERS: Visit Provider Nurse Practitioner Family
DX: R10.11 Right upper quadrant pain (principal); K74.69 Other cirrhosis of liver; K76.0 Fatty (change of) liver, not elsewhere classified
CPT/HCPCS: 36415; 80053; 85025

== ENCOUNTER → 2021-09-29 09:40 | Outpatient (CLI) | payer OTHER, SELFPAY ==
[2021-09-29 10:19] LABS: Basophils # 0.1 K/mm3 (0-0.2); Basophils % 0.9 % (0.1-2.0); Eosinophils # 0.3 K/mm3 (0.0-0.4); Eosinophils % 2.7 % (0.1-12.0); Hematocrit 41.2 % (37.0-47.0); Hemoglobin 12.8 g/dL (12.2-16.2); Lymphocytes # 2.7 K/mm3 (0.7-4.5); Lymphocytes % 29.2 % (10-50); Mean Corpuscular HGB Conc 31.1 g/dL (31.8-35.4); Mean Corpuscular Volume 80.5 fl (81-99); Monocytes # 0.5 K/mm3 (0.1-1.0); Monocytes % 5.4 % (1.7-9.3); Neutrophils # 5.7 K/mm3 (1.8-7.8); Neutrophils % 61.7 % (37.0-80.0); Platelet Count 222 K/mm3 (142-424); Red Blood Count 5.12 M/mm3 (4.20-5.40); Red Cell Distribution Width 17.4 % (11.5-17.5); White Blood Count 9.3 K/mm3 (4.8-10.8)
[2021-09-29 10:54] LABS: Chloride 104 mmol/L (98-107)
[2021-09-29 10:55] LABS: Potassium 4.6 mmoL/L (3.5-5.1); Sodium 139 mmol/L (136-145)
[2021-09-29 10:57] LABS: Blood Urea Nitrogen 16 mg/dl (7-17); Estimated Glomerular Filt Rate 96 ml/min (>60); GFR (African American) 117 ML/MIN (>60)
[2021-09-29 10:58] LABS: Alanine Aminotransferase 32 U/L (12-78); Albumin Level 3.7 g/dl (3.5-5.0); Albumin/Globulin Ratio 1.8 (1.1-1.8); Alkaline Phosphatase 63 U/L (38-126); Anion Gap 10.6 mEq/L (5-15); Aspartate Amino Transferase 28 U/L (14-36); Bilirubin,Total 0.6 mg/dl (0.2-1.3); Calcium 8.8 mg/dl (8.4-10.2); Carbon Dioxide 29 mmol/L (22.0-30.0); Globulin 2.1 g/dL (1.3-3.2); Glucose 113 mg/dl (74-100); Total Protein,Serum 5.8 g/dl (6.3-8.2)
== END ==
LOC: LAB 09:42
PROVIDERS: PCP Family Medicine; Visit Provider Nurse Practitioner Family
DX: R10.11 Right upper quadrant pain (principal); K58.9 Irritable bowel syndrome, unspecified; K76.0 Fatty (change of) liver, not elsewhere classified; K83.8 Other specified diseases of biliary tract; E74.31 Sucrase-isomaltase deficiency
CPT/HCPCS: 36415; 80053; 85025

== ENCOUNTER → 2022-08-20 12:06 | Outpatient (CLI) | payer OTHER, SELFPAY ==
[2022-08-20 13:22] LABS: Basophils # 0.1 K/mm3 (0-0.2); Basophils % 0.8 % (0.1-2.0); Eosinophils # 0.2 K/mm3 (0.0-0.4); Eosinophils % 2.1 % (0.1-12.0); Hematocrit 42.2 % (37.0-47.0); Hemoglobin 13.8 g/dL (12.2-16.2); Lymphocytes # 3.2 K/mm3 (0.7-4.5); Lymphocytes % 30.4 % (10-50); Mean Corpuscular HGB Conc 32.8 g/dL (31.8-35.4); Mean Corpuscular Hemoglobin 26.8 pg (27.0-31.2); Mean Corpuscular Volume 81.9 fl (81-99); Mean Platelet Volume 9.6 fl (7.4-10.4); Monocytes # 0.5 K/mm3 (0.1-1.0); Monocytes % 4.5 % (1.7-9.3); Neutrophils # 6.5 K/mm3 (1.8-7.8); Neutrophils % 62.3 % (37.0-80.0); Platelet Count 307 K/mm3 (142-424); Red Blood Count 5.15 M/mm3 (4.20-5.40); White Blood Count 10.5 K/mm3 (4.8-10.8)
[2022-08-20 14:56] LABS: Alanine Aminotransferase 37 U/L (12-78); Albumin Level 4.2 g/dl (3.5-5.0); Albumin/Globulin Ratio 1.6 (1.1-1.8); Alkaline Phosphatase 72 U/L (38-126); Anion Gap 12.3 mEq/L (5-15); Aspartate Amino Transferase 34 U/L (14-36); Bilirubin,Total 0.5 mg/dl (0.2-1.3); Blood Urea Nitrogen 12 mg/dl (7-17); Calcium 9.5 mg/dl (8.4-10.2); Carbon Dioxide 30 mmol/L (22.0-30.0); Chloride 101 mmol/L (98-107); Estimated Glomerular Filt Rate 114 ml/min (>60); GFR (African American) 138 ML/MIN (>60); Globulin 2.6 g/dL (1.3-3.2); Glucose 91 mg/dl (74-100); Potassium 4.3 mmoL/L (3.5-5.1); Sodium 139 mmol/L (136-145); Total Protein,Serum 6.8 g/dl (6.3-8.2)
== END ==
PROVIDERS: PCP Family Medicine; Visit Provider Nurse Practitioner Family
DX: R10.11 Right upper quadrant pain (principal); K58.9 Irritable bowel syndrome, unspecified; E74.31 Sucrase-isomaltase deficiency; K76.0 Fatty (change of) liver, not elsewhere classified; K83.8 Other specified diseases of biliary tract
CPT/HCPCS: 36415; 80053; 85025

== ENCOUNTER 2022-10-27 14:51 | Emergency (ER) | payer OTHER, SELFPAY ==
[2022-10-27 14:51] VITALS: BP 120/75; PULSE 69; RESP 16; TEMP 36.6; O2SAT 100; BMI 38.7
[2022-10-27 15:01] LABS: Microscopic, Urine URINE MICROSCOPIC (MICROSCOPIC)
[2022-10-27 15:03] LABS: Appearance,Urine CLEAR (Clear); Bilirubin,Urine Negative (Negative); Blood, Urine 1+ (Negative); Color,Urine YELLOW (Yellow); Glucose,Urine (UA) 3+ (Negative); Ketones,Urine Negative (Negative); Leukocyte Esterase,Urine Negative (Negative); Nitrate,Urine Negative (Negative); PH,Urine 5.5 (5.0-8.5); Protein,Urine Negative (Negative); Urobilinogen,Urine 0.2 EU/dl (0.2)
[2022-10-27 15:09] VITALS: BP 120/75; PULSE 68; O2SAT 100
--- NOTE | 2022-10-27 15:17 | PC.NURSE ---
Addendum entered by Mala Chappell, [facility] 10/27/22 15:18: not nd Original Note: er haroldo @ [facility]
[2022-10-27 15:18] LABS: Bacteria,Urine Trace /lpf; RBC,Urine Occasional #/hpf (0-3)
--- NOTE | 2022-10-27 15:19 | CT_ITS ---
PROCEDURE INFORMATION: Exam: CT Abdomen And Pelvis With Contrast Exam date and time: 10/27/2022 3:51 PM Age: 36 years old Clinical indication: Abdominal tenderness and nausea; Additional info: Concern for appendicitis TECHNIQUE: Imaging protocol: Computed tomography of the abdomen and pelvis with contrast. Radiation optimization: All CT scans at this facility use at least one of these dose optimization techniques: automated exposure control; mA and/or kV adjustment per patient size (includes targeted exams where dose is matched to clinical indication); or iterative reconstruction. Contrast material: ISOVUE; Contrast volume: 75 ml; Contrast route: IV; REPORTING DATA: Count of CT and Cardiac NM exams in prior 12 months: This patient has received 0 known CTs and 0 known cardiac nuclear medicine studies in the 12 months prior to the current study. COMPARISON: CT ABDOMEN PELVIS W CON 03/22/2020 10:07 PM FINDINGS: Lungs: Pleural-parenchymal scarring in the left lung base redemonstrated. Lung bases otherwise clear. Liver: Fatty liver changes with hepatomegaly redemonstrated. Gallbladder and bile ducts: Status post cholecystectomy. No evident bile duct dilatation.T Pancreas: Normal. No ductal dilation. Spleen: 15 mm well-defined low-density lesion in the posteromedial spleen with a density of 24 that previously measured [address] of 03/22/2020. Spleen otherwise unremarkable. Adrenal glands: Normal. No mass. Kidneys and ureters: Normal. No hydronephrosis. Stomach and bowel: Unremarkable. No obstruction. No mucosal thickening. Appendix: Appendix is normal. No evidence of appendicitis. Intraperitoneal space: See Reproductive finding. Vasculature: Unremarkable. No abdominal aortic aneurysm. Lymph nodes: Unremarkable. No enlarged lymph nodes. Urinary bladder: Unremarkable as visualized. Reproductive: A 5.7 cm well-defined fluid density cyst posterior to the left ovary. A 3.1 cm cyst in the anterior left ovary also noted. Small amount of low-density free fluid noted in the pelvis. Pelvic viscera otherwise unremarkable. Bones/joints: Unremarkable. No acute fracture. Soft tissues: See Reproductive finding. IMPRESSION: 1. Enlarged left ovary containing a 3.1 cm cyst anteriorly. An additional 5.7 cm cyst is noted posteriorly either arising from the left ovary or related to a adnexal para ovarian cyst. Small amount of pelvic free fluid. Further assessment with ultrasound of the pelvis is advised. 2. A 15 mm low-density lesion in the spleen has increased mildly in size compared to CT of 03/22/2020. The density of this lesion is greater than fluid. A benign process such as a hyperdense cyst is favored. This could be confirmed with nonemergent ultrasound of the spleen. 3. Additional nonemergent findings as above.
[2022-10-27 15:31] VITALS: BP 131/71; PULSE 70; O2SAT 98
[2022-10-27 15:33] LABS: Urine Pregnancy, HCG Qual. Negative (Negative)
[2022-10-27 15:33] LABS: Basophils # 0.2 K/mm3 (0-0.2); Basophils % 1.8 % (0.1-2.0); Chloride 99 mmol/L (98-107); Eosinophils # 0.3 K/mm3 (0.0-0.4); Eosinophils % 2.5 % (0.1-12.0); Hematocrit 45.6 % (37.0-47.0); Hemoglobin 14.2 g/dL (12.2-16.2); Lymphocytes # 3.1 K/mm3 (0.7-4.5); Lymphocytes % 27.5 % (10-50); Mean Corpuscular HGB Conc 31.2 g/dL (31.8-35.4); Mean Corpuscular Hemoglobin 25.1 pg (27.0-31.2); Mean Corpuscular Volume 80.6 fl (81-99); Mean Platelet Volume 9.3 fl (7.4-10.4); Monocytes # 0.6 K/mm3 (0.1-1.0); Monocytes % 4.8 % (1.7-9.3); Neutrophils # 7.2 K/mm3 (1.8-7.8); Neutrophils % 63.4 % (37.0-80.0); Platelet Count 258 K/mm3 (142-424); Potassium 3.7 mmoL/L (3.5-5.1); Red Blood Count 5.65 M/mm3 (4.20-5.40); Red Cell Distribution Width 15.2 % (11.5-17.5); Sodium 137 mmol/L (136-145); White Blood Count 11.4 K/mm3 (4.8-10.8)
[2022-10-27 15:35] LABS: Alanine Aminotransferase 31 U/L (12-78); Alkaline Phosphatase 66 U/L (38-126); Aspartate Amino Transferase 27 U/L (14-36); Bilirubin,Total 0.4 mg/dl (0.2-1.3); Blood Urea Nitrogen 11 mg/dl (7-17); Creatinine Clearance Estimated 195 mL/min (50-200); Estimated Glomerular Filt Rate 96 ml/min (>60); GFR (African American) 116 ML/MIN (>60)
[2022-10-27 15:36] LABS: Albumin/Globulin Ratio 1.4 (1.1-1.8); Anion Gap 9.7 mEq/L (5-15); Calcium 9.1 mg/dl (8.4-10.2); Carbon Dioxide 32 mmol/L (22.0-30.0); Globulin 2.9 g/dL (1.3-3.2); Glucose 130 mg/dl (74-100); Lipase 76 U/L (23-300); Total Protein,Serum 6.9 g/dl (6.3-8.2)
[2022-10-27 15:43] LABS: C-Reactive Protein 9.4 mg/L (0-4)
[2022-10-27 16:01] VITALS: BP 127/64; PULSE 68; O2SAT 94
--- NOTE | 2022-10-27 16:28 | PC.NURSE ---
rounded on pt, no needs at this time, family at [facility]
[2022-10-27 16:49] VITALS: BP 127/77; PULSE 63; RESP 17; TEMP 36.6; O2SAT 97
--- NOTE | 2022-10-27 18:35 | HMH.EDGENADL ---
Discharge Plan Disposition Patient Disposition: Home, Self-Care Condition: Good Prescriptions Prescriptions: New ketorolac 10 mg tablet 10 mg PO Q8H 5 Days Qty: 15 0RF methocarbamol [Methocarbamol] 750 mg tablet 750 mg PO Q6 PRN (Reason: Muscle Spasm) Qty: 30 0RF ondansetron [ondansetron] 4 mg tablet,disintegrating 4 mg PO TIDP PRN (Reason: Nausea) Qty: 10 0RF No Action pioglitazone 15 MG tablet 15 mg PO DAILY lisinopril 10 MG tablet 40 mg PO DAILY cetirizine 10 mg tablet 10 mg PO DAILY Label Comments: TAKE 1 TABLET BY MOUTH ONCE DAILY levothyroxine [Euthyrox] 50 mcg tablet 50 mcg PO DAILY Label Comments: TAKE 1 TABLET BY MOUTH ONCE DAILY buspirone 10 mg tablet 10 mg PO BID Label Comments: TAKE 1 TABLET BY MOUTH TWICE DAILY DIRECTED hydrochlorothiazide 25 mg tablet 25 mg PO DAILY Label Comments: TAKE 1 TABLET BY MOUTH ONCE DAILY metoprolol succinate 25 mg tablet extended release 24 hr 25 mg PO DAILY Label Comments: TAKE 1 TABLET BY MOUTH ONCE DAILY colestipol 1 gram tablet 2 g PO BID Label Comments: Take 2 tablet by mouth twice a day as directed rosuvastatin 5 mg tablet 5 mg PO DAILY Label Comments: TAKE 1 TABLET BY MOUTH ONCE DAILY Ozempic 2 mg/dose (8 mg/3 mL) pen injector 2 mg SQ WEEKLY Label Comments: INJECT 2 MG SUBCUTANEOUSLY ONCE WEEKLY Referrals Follow up/Referrals: Mike Painter MD [Primary Care Provider] - See instructions Clinical Impressions Clinical Impression: Abdominal pain Instructions Patient Instructions: DI for Acute Abdominal Pain Discharge ED Provider: Arpan Cruz General Adult HPI General Chief complaint: Abdominal Pain Stated complaint: Lower RT Abd pain/back Time Seen by Provider: 10/27/22 15:00 Mode of Arrival: Ambulatory Source of Information: Patient Limitations: No Limitations Description of Symptoms (Recalled from ER Triage Doc. by RN): 36 F presents with RLQ abdominal pain that radiates to her lower groin and right flank. This started 2-3 days ago and has not gotten better or worse. Denies dysuria, fever, chills. Reports mild nausea. History of Present Illness HPI narrative: Patient is a 36-year-old female with history of diabetes who presents with concern for right lower quadrant pain. She says that symptoms started about 2-3 days ago and she locates them mainly in her right flank and right groin. She says that has gotten worse during this time so she decided to come in for evaluation. She has been a little nauseous during this time. Denies any dysuria. Denies any frequency. Denies any hematuria. Denies any fever or chills. Denies any diarrhea. Related Data Home Medications Medication Instructions Recorded Confirmed lisinopril 10 mg tablet 40 mg PO DAILY High blood pressure 04/07/19 10/27/22 pioglitazone 15 mg tablet 15 mg PO DAILY Diabetes 04/07/19 10/27/22 buspirone 10 mg tablet 10 mg PO BID Anxiety 10/27/22 10/27/22 cetirizine 10 mg tablet 10 mg PO DAILY Seasonal Allergies 10/27/22 10/27/22 colestipol 1 gram tablet 2 g PO BID Cholesterol 10/27/22 10/27/22 hydrochlorothiazide 25 mg tablet 25 mg PO DAILY High blood pressure 10/27/22 10/27/22 levothyroxine 50 mcg tablet 50 mcg PO DAILY Thyroid 10/27/22 10/27/22 (Euthyrox) metoprolol succinate 25 mg 25 mg PO DAILY High blood pressure 10/27/22 10/27/22 tablet,extended release 24 hr rosuvastatin 5 mg tablet 5 mg PO DAILY Cholesterol 10/27/22 10/27/22 semaglutide 2 mg/dose (8 mg/3 mL) 2 mg SQ WEEKLY Diabetes 10/27/22 10/27/22 subcutaneous pen injector (Ozempic) Previous Rx's Medication Instructions Recorded ketorolac 10 mg tablet 10 mg PO Q8H 5 days #15 tabs 10/27/22 methocarbamol 750 mg tablet 750 mg PO Q6 PRN Muscle Spasm #30 10/27/22 tabs ondansetron 4 mg disintegrating 4 mg PO TIDP PRN Nausea #10 tabs 10/27/22 tablet Allergies Karan
== END 2022-10-27 16:51 | disposition home or self-care (01) ==
PROVIDERS: Emergency Provider Student in an Organized Health Care Education/Training Program; PCP Family Medicine
DX: R10.31 Right lower quadrant pain (principal); R11.0 Nausea
CPT/HCPCS: 74177; 80053; 81001; 81025; 83690; 85025; 86140; 96360; 96374; 96375; 99284; 99285; J2405; Q9967

== ENCOUNTER 2024-10-26 10:23 | Outpatient (RCR) | payer OTHER, SELFPAY | END 2024-10-26 23:59 | disposition home or self-care (01) | LOC: OT 10:23 | PROVIDERS: PCP Nurse Practitioner; Visit Provider Nurse Practitioner | DX: Z98.890 Other specified postprocedural states (principal); S42.301A Unspecified fracture of shaft of humerus, right arm, initial encounter for closed fracture | CPT/HCPCS: 97166 ==

== ENCOUNTER 2024-11-23 10:00 | Outpatient (RCR) | payer OTHER, SELFPAY | END 2024-11-23 23:59 | disposition home or self-care (01) | LOC: OT 10:00 | PROVIDERS: Visit Provider Nurse Practitioner | DX: Z98.890 Other specified postprocedural states (principal); S42.301A Unspecified fracture of shaft of humerus, right arm, initial encounter for closed fracture | CPT/HCPCS: 97014; 97110; 97140; 97168; G0283 ==